=== PATIENT | male | born 1950 | race Caucasian/White ===

== ENCOUNTER 2018-05-20 23:55 | Inpatient (IN) | payer OTHER ==
[~2018-05-20] VITALS: Ht 167.6 cm; Wt 90.7 kg
--- NOTE | ~2018-05-20 | EKG ---
[place], [place] ELECTROCARDIOGRAM REPORT NAME: FABIAN ARELLANO UNIT #: [id number] ROOM: 405 DOCTOR: THOR DRAFT REPORT BIRTHDATE: [birth year] [facility] Test Date: 2018-05-21 Test Time: 00:01:45 Pat Name: FABIAN ARELLANO Department: ER Room: 405 Gender: M Chemistry Tutor: Emir Pérez : 1950 Requested By: BRITTANY CARLSON Order Number: [id number] Reading MD: Jerry Mcelroy MD Measurements Intervals [place] Rate: 118 P: 51 DE: 141 QRS: 21 QRSD: 105 T: 54 QT: 337 QTc: 473 Interpretive Statements Sinus tachycardia Low voltage, extremity leads Baseline wander in lead(s) V1 Electronically Signed On 05-21-2018 17:39:41 PDT by Jerry Mcelroy MD CM:EKGRPT:ELECTROCARDIOGRAM REPORT [id number] BRITTANY CARLSON MD EPIPHANY DRAFT REPORT BRITTANY CARLSON MD
--- NOTE | ~2018-05-20 | EKG ---
[place], [place] ELECTROCARDIOGRAM REPORT NAME: FABIAN ARELLANO UNIT #: [id number] ROOM: 405 DOCTOR: THOR DRAFT REPORT BIRTHDATE: [birth year] [facility] Test Date: 2018-05-21 Test Time: 02:09:14 Pat Name: FABIAN ARELLANO Department: ER Room: 405 Gender: M Director Sterile Processing: Emir Pérez : 1950 Requested By: BRITTANY CARLSON Order Number: [id number] Reading MD: Jerry Mcelroy MD Measurements Intervals [place] Rate: 102 P: 37 [place]: 138 QRS: -21 QRSD: 100 T: 42 QT: 355 QTc: 463 Interpretive Statements Sinus tachycardia Borderline left axis deviation Low voltage, extremity leads RSR' in V1 or V2, probably normal variant Electronically Signed On 05-21-2018 17:41:04 PDT by Jerry Mcelroy MD CM:EKGRPT:ELECTROCARDIOGRAM REPORT [id number] BRITTANY CORTEZANY DRAFT REPORT BRITTANY CARLSON MD
--- NOTE | ~2018-05-20 | CON ---
[place], [place] REPORT OF CONSULTATION [id number] UNIT #: [id number] ROOM: 405 DOCTOR: MELINDA GRANT MDYONAS BIRTHDATE: [birth year] DOS: 05/21/2018 PULMONARY CONSULTATION, EVALUATION AND MANAGEMENT CONSULTATION REQUESTED BY: Hospitalist Services. REASON FOR CONSULTATION: Because of increased symptoms of shortness of breath and others. HISTORY OF PRESENT ILLNESS. This is a 67-year-old white male patient with past history of chronic stroke with right hemiparesis/hemiplegia. The patient has been admitted to hospital as he developed increased respiratory symptoms for a couple of days. He has been admitted to the hospital this morning for further care. He has been noted with excessive severe wheezing with shortness of breath, which was noted this morning, was assessed appear to be in distress. Does have some audible wheezing as well. Denies symptoms of fever or chills with that. Denies symptoms of hemoptysis. Denies any acute chest pain at the present time except the pain with coughing sensation in the retrosternal area. He has one brother who has also present in the room with the patient. PAST MEDICAL HISTORY: 1. The patient was noted with chronic stroke for this patient with left cerebrovascular accident and right hemiparesis/hemiplegia. 2. The patient with a previous history of tobacco use as well. 3. Chronic obstructive pulmonary disease. 4. Moderate obesity. 5. Benign prostatic hypertrophy. 6. Neurotic depression. 7. Essential hypertension. 8. Hyperlipidemia. 9. Peripheral neuropathy. 10. Gastroesophageal reflux disease. SOCIAL HISTORY: The patient is currently . He has four children. Denies history of alcohol use or illicit drug use. Tobacco use was noted since teenager and smoked 1 pack of cigarettes per day, which was discontinued in 2008 when he developed acute stroke. FAMILY HISTORY: The patient's father with complication of CVA. Mother with complication of myocardial infarction. MEDICATIONS: From home were listed as prescription of Zithromax, Lipitor, Pulmicort Respules, Celexa, diclofenac, Trelegy Ellipta, gabapentin, lisinopril, metoprolol succinate, Protonix, prednisone 50 mg, Flomax and theophylline. The medications, which were administered today as Solu-Medrol 60 mg b.i.d. IV famotidine, Mucinex, albuterol sulfate, diclofenac and Levaquin as well as hydromorphone p.r.n. use. DRUG ALLERGIES: The patient noted allergies to: [place], [place] REPORT OF CONSULTATION NAME: FABIAN ARELLANO UNIT #: [id number] ROOM: 405 DOCTOR: MELINDA GRANT MD,[facility] BIRTHDATE: [birth year] 1. IBUPROFEN. 2. PENICILLINS. PHYSICAL EXAMINATION: GENERAL: A 67-year-old male noted with audible wheezing with some respiratory distress and tachypnea this morning of assessment. Height was recorded 5 feet 6 inches, weight of 200 pounds and BMI 32. VITAL SIGNS: With a normal temperature, respiratory rate 17-22, heart rate of 126-93, sinus tachycardia, blood pressure 157/85-153/92. The pulse oxygen saturation on 3 liters nasal cannula 96% saturation. HEENT: Chronic obesity. Head was atraumatic. Severe decreased posterior pharyngeal space, high tongue base and crowding of soft tissue structures. NECK: Supple. CARDIOVASCULAR: S1, S2 is audible. LUNGS: Noted with diffuse expiratory wheezing. There were no crackles. ABDOMEN: Soft, nontender. Bowel sounds present and obese. EXTREMITIES: Without any edema, clubbing or cyanosis. MUSCULOSKELETAL: Noted without any deformities. CENTRAL NERVOUS SYSTEM: Right hemiparesis/hemiplegia was noted. LABORATORY DATA: Reviewed for today's admission. The CBC of this morning in the Emergency Room, WBC count 11.4, hemoglobin 11.3, platelet count normal. PT/PTT with INR 3.8, which is mildly about therapeutic range with normal PTT. CMP noted normal BUN and creatinine. Lactic acid was 2.7. The lipase 116. The arterial blood gas that I ordered obtained, pH of 7.40, pCO2 34, pO2 of 55.7. The patient has a CT scan of the chest and abdomen was also performed was reviewed shows evidence of severe bullous emphysematous changes, calcification of the left apex as well. Paraseptal emphysema with centrilobular emphysema was also seen. Calcification of the left pleural fluid was also noted. No acute pulmonary infiltration was visible. T8 compression fracture was also reported by the radiologist interpretation, but there is acute ____ to be determined. IMPRESSION: 1. Currently noted with significant respiratory distress was noted with acute hypoxemic respiratory failure with acute exacerbation of chronic obstructive pulmonary disease, acute tracheobronchitis. 2. Moderate obesity as well. 3. Past history of cerebrovascular accident with right hemiparesis/hemiplegia. 4. Calcification of the pleura at this time. History not clearly remembered. 5. Abnormal PT and PTT with PT/INR was also noted, but the medication list does not continue the use of the Coumadin. PLAN OF TREATMENT: The patient has been started on the BiPAP setting of 01/21 with oxygen supplementation with the pulse ox 92% or greater. The PT, PTT, and PT/INR at the present time to reassess and inquire about use of the Coumadin or similar medication in the home settings as well. Sputum for Gram stain and culture will be ordered. Other therapy, plan and management, additional treatment changes will be ordered based on the progression of the illness. Continue bronchodilator use of corticosteroids in case of worsening of the respiratory status, consider transfer to the Intensive Care Unit for further [place], [place] REPORT OF CONSULTATION NAME: ADANFABIAN Winsome UNIT #: [id number] ROOM: 405 DOCTOR: YONAS CABRERA MD BIRTHDATE: [birth year] medical management. Potential intubation might occur if the patient's respiratory failure worsens. All other therapy, plan of management, care, plan of treatments. Usual care. Supportive plan of management and treatment plan as in progress as well. Thanks for allowing me to participate in the care of this patient. YONAS LAWRENCE MD CM:CONSTR:REPORT OF CONSULTATION 1305 05/22/18 0353 interface
--- NOTE | ~2018-05-20 | PR ---
[place], [place] PROGRESS NOTE NAME: [facility] [id number] UNIT #: [id number] ROOM: 405 DOCTOR: MELINDA GRANT MD,YONAS BIRTHDATE: [birth year] DOS: 05/24/2018 SUBJECTIVE: The patient has been noted quite comfortable with marked improvement. The patient noted reduction in respiratory symptom, coughing, wheezing, shortness of breath. There were no symptoms of chest pain reported by the patient. OBJECTIVE: VITAL SIGNS: Normal temperature, respiratory rate 20, heart rate of 87, blood pressure 127/63. The pulse ox saturation on 3 liters nasal cannula 99% saturation. HEENT: Head was atraumatic. Eyes nonicterus. NECK: Chronic obesity. Supple. CARDIOVASCULAR: S1, S2 is audible. LUNGS: The patient was noted without any wheezing or crackles at the present time. ABDOMEN: Soft and obese, nontender. EXTREMITIES: No new changes. IMPRESSION: The patient with: 1. Progressive resolution and improvement in acute exacerbation of chronic obstructive pulmonary disease were noted gradually and progressively current medical management. 2. Acute chronic obesity. 3. Suspected obstructive sleep apnea disorder. PLAN OF THERAPY: No changes in the plan of care at this time. Continue the patient's current therapy, plan of management, care plan of treatment. YONAS LAWRENCE MD CM:PNTRANS [id number] YONAS GRANT MD 05/25/18 0216 interface
--- NOTE | ~2018-05-20 | PR ---
[place], [place] PROGRESS NOTE NAME: FAIBAN ARELLANO UNIT #: [id number] ROOM: 405 DOCTOR: YONAS CABRERA MD BIRTHDATE: [birth year] DOS: 05/23/2018 PULMONARY PROGRESS NOTE SUBJECTIVE: He appeared to be quite comfortable at this time. This morning ____ noted audible wheezing. Reporting cough at time. No sputum expectoration. Shortness of breath, resolving. Noted fully awake, alert, and oriented this morning of assessment. OBJECTIVE: VITAL SIGNS: Normal temperature, respiratory rate 18, heart rate 80, blood pressure 136/70-113/48. The pulse oxygen 97% saturation. HEENT: Examination shows head was atraumatic. Eyes nonicterus. NECK: Supple. CARDIOVASCULAR: S1, S2 is audible. LUNGS: The patient without any crackles. Mild expiratory wheezing. ABDOMEN: Soft, nontender. Bowel sounds present. EXTREMITIES: No new changes. LABORATORY DATA: INR this morning noted 2.2, which is in therapeutic range. Blood cultures, no bacterial growths. IMPRESSION: 1. Resolving acute exacerbation of chronic obstructive pulmonary disease. The patient with acute bronchitis in the last 24 hours. 2. The patient with history of old cerebrovascular accident with hemiparesis on the right side. 3. Improving acute exacerbation of chronic obstructive pulmonary disease as well. 4. Suspicion of obstructive sleep apnea disorder. PLAN OF MANAGEMENT: Continuation of current plan of management except reduction of Solu-Medrol from 60 mg to 40 mg b.i.d. Monitor respiratory status, continue BiPAP, oxygen, and other therapies. [place], [place] PROGRESS NOTE NAME: FABIAN ARELLANO UNIT #: [id number] ROOM: 405 DOCTOR: YONAS CABRERA MD BIRTHDATE: [birth year] YONAS LAWRENCE MD CM:PNTRANS [id number] YONAS GRANT MD 05/24/18 0118 interface
--- NOTE | ~2018-05-20 | EKG ---
[place], [place] ELECTROCARDIOGRAM REPORT NAME: FABIAN ARELLANO UNIT #: [id number] ROOM: 405 DOCTOR: THOR DRAFT REPORT BIRTHDATE: [birth year] [facility] Test Date: 2018-05-21 Test Time: 05:55:39 Pat Name: FABIAN ARELLANO Department: Room: 405 Gender: M Air Saw Operator: Selwyn Smith : 1950 Requested By: BRITTANY CARLSON Order Number: [id number] Reading MD: Ninoska George Measurements Intervals [place] Rate: 117 P: 48 [place]: 137 QRS: 13 QRSD: 103 T: 58 QT: 340 QTc: 475 Interpretive Statements Sinus tachycardia Low voltage, extremity leads Baseline wander in lead(s) II,III,aVF,V2,V4 Compared to ECG 05/21/2018 02:09:14 No significant changes Electronically Signed On 05-24-2018 4:47:40 PDT by Ninoska George CM:EKGRPT:ELECTROCARDIOGRAM REPORT [id number] BRITTANY MCRAE DRAFT REPORT BRITTANY CARLSON MD
--- NOTE | ~2018-05-20 | EKG ---
[place], [place] ELECTROCARDIOGRAM REPORT NAME: FABIAN ARELLANO UNIT #: [id number] ROOM: 405 DOCTOR: THOR DRAFT REPORT BIRTHDATE: [birth year] [facility] Test Date: 2018-05-21 Test Time: 16:34:11 Pat Name: FABIAN ARELLANO Department: Room: 405 1 Gender: M Developmental Specialist: Christel Coates : 1950 Requested By: CHARLES VALLADARES Order Number: [id number] Reading MD: Jerry Mcelroy MD Measurements Intervals [place] Rate: 161 P: 60 MT: 187 QRS: 0 QRSD: 113 T: 77 QT: 339 QTc: 555 Interpretive Statements Supraventricular tachycardia Borderline intraventricular conduction delay Low voltage, extremity leads Abnormal R-wave progression, late transition Electronically Signed On 05-21-2018 17:42:10 PDT by Jerry Mcelroy MD CM:EKGRPT:ELECTROCARDIOGRAM REPORT [id number] CHARLES BERGMAN DRAFT REPORT CHARLES VALLADARES DO
--- NOTE | ~2018-05-20 | PR ---
[place], [place] PROGRESS NOTE NAME: FABIAN ARELLANO [facility] #: [id number] UNIT #: [id number] ROOM: 405 DOCTOR: MELINDA GRANT MD,YONAS BIRTHDATE: [birth year] DOS: 05/22/2018 PULMONARY PROGRESS NOTE SUBJECTIVE: The patient has been noted comfortable, responding to treatment with the use of the BiPAP. The patient has used the BiPAP with reduction of respiratory distress noted this morning. He has been currently comfortably resting on his bed. Denies symptoms of chest pain, fever or chills. He was planned for endoscopy to be done today by Dr. Hernandez. The patient has not reported any symptoms of nausea, vomiting. Cough has been noted without any sputum expectoration. There were no symptoms of fever or chills. The remaining systems were reviewed. They were noted all negative. OBJECTIVE: VITAL SIGNS: Normal temperature, respiratory rate 20, heart rate of 140, yesterday to 122, later on 89. The pulse oxygen saturation recorded as 97% saturation on 3 liters nasal cannula. HEENT: Chronic obesity. Head was atraumatic. NECK: Supple. CARDIOVASCULAR SYSTEM: S1, S2 is audible. LUNGS: Noted moderate decreased breath sounds and expiratory wheezing decreased from previous examination. ABDOMEN: Soft, nontender. EXTREMITIES: No edema. MUSCULOSKELETAL: Without any acute deformities. CENTRAL NERVOUS SYSTEM: Persistent chronic right hemiplegia/hemiparesis. LABORATORY DATA: CMP this morning; glucose 153, BUN and creatinine were normal, other electrolytes normal. PT/INR were noted 3.2 in the therapeutic range. CBC; WBC 11.0, hemoglobin 10.2, hematocrit 32.7, and platelet count of 277,000. IMPRESSION: The patient who has been currently noted with: 1. Acute exacerbation of chronic obstructive pulmonary disease, respiratory distress as well decreased. 2. History of chronic cerebrovascular accident with hemiplegia. Other symptoms with the pain and also the patient has been assessed by Dr. Hernandez. 3. Chronic obesity. 4. Suspicion of obstructive sleep apnea disorder. PLAN OF TREATMENT: Continue to use the BiPAP, oxygen supplementation, other therapies as in progress. Other additional treatment changes will be ordered based on the progression of illness. No changes in steroids. Use the BiPAP intermittently during the day, continue at nighttime. Proceed with the current surgical procedure for assessment of the GI tract by Dr. Hernandez. The case was discussed with him personally. The patient was noted on therapeutic INR, most likely receiving the anticoagulation. Family members were not sure about that and not listed in the patient's current history. The patient does not have any other abnormality, which has been explaining. The only other way to explain that would be some kind of coagulation abnormality with a deficiency of the [place], [place] PROGRESS NOTE NAME: FABIAN ARELLANO UNIT #: [id number] ROOM: [facility] DOCTOR: YONAS CABRERA MD BIRTHDATE: [birth year] clotting factors. However, this is to be clarified for the patient's pharmacy about his medication prescriptions to accurately charge the patient's abnormal INR. YONAS LAWRENCE MD CM:PNTRANS [id number] YONAS GRANT MD 05/23/18 0028 interface
[2018-05-20 23:55] VITALS: BP 149/75
[2018-05-21] VITALS (11 sets, daily range): BP systolic 132–166; BP diastolic 80–94
[2018-05-21 00:38] LABS: BASO # 0.1 10*3/uL (0.0-0.1); BASO % 1.1 % (0.0-1.0); EOS # 0.3 10*3/uL (0.0-0.4); HEMATOCRIT 35.8 % (42.0-52.0); HEMOGLOBIN 11.3 g/dl (14.0-18.0); LYMPH % 17.3 % (27.0-41.0); MEAN CELL VOLUME 81.9 fl (80.0-94.0); MEAN CORPUSCULAR HGB 25.9 pg (27.0-31.0); MEAN CORPUSCULAR HGB CONC 31.6 g/dl (33.0-37.0); MEAN PLATELET VOLUME 11.4 fl (9.6-12.3); MONO # 1.4 10*3/uL (0.1-1.0); MONO % 12.3 % (3.0-9.0); NEUT # 7.2 10*3/uL (2.3-7.9); NEUT % 63.7 % (47.0-73.0); PLATELET COUNT AUTOMATED 280 10*3/uL (130-400); RED BLOOD COUNT 4.37 10*6/uL (4.50-5.90); RED CELL DISTRI WIDTH 16.8 % (0-14.5); WHITE BLOOD COUNT 11.4 10*3/uL (4.8-10.8)
[2018-05-21 00:50] LABS: ACT PARTIAL THROMBO TIME 30.3 SECONDS (20.8-31.5); INTERNATIONAL NORM RATIO 3.8 (2.0-3.5)
[2018-05-21 00:59] LABS: ALBUMIN 3.4 gm/dl (3.1-4.5); ALKALINE PHOSPHATASE 93 U/L (45-117); BUN 12 mg/dl (7-24); CHLORIDE 108 mmol/L (98-107); CREATININE 1.02 mg/dL (0.70-1.30); POTASSIUM 4.2 mmol/L (3.5-5.1); SGOT/AST 31 IU/L (3-35); SGPT/ALT 36 U/L (12-78); SODIUM 142 mmol/L (136-145)
[2018-05-21 01:04] LABS: TROPONIN I < 0.015 ng/ml (<0.045)
[2018-05-21] MEDS ORDERED: LIPITOR10 MG PO (05:58)
[2018-05-21] MEDS ORDERED: ZITHROMAX250 MG PO (05:59)
[2018-05-21] MEDS ORDERED: CELEXA20 MG PO (06:00)
[2018-05-21] MEDS ORDERED: NEURONTIN300 MG PO (06:00)
[2018-05-21] MEDS ORDERED: ZESTRIL10 MG PO (06:01)
[2018-05-21] MEDS ORDERED: METOPROLOL SUCC25 M2 PO (06:02)
[2018-05-21] MEDS ORDERED: PANTOPRAZOLE SO40 MG PO (06:03)
[2018-05-21] MEDS ORDERED: PREDNISONE10 M1 PO (06:03)
[2018-05-21] MEDS ORDERED: SENNA LAX8.6 M1 PO (06:04)
[2018-05-21] MEDS ORDERED: TAMSULOSIN HCL0.4 MG PO (06:04)
[2018-05-21] MEDS ORDERED: THEO-24 200MG200 MG PO (06:05)
[2018-05-21] MEDS ORDERED: PULMICORT RESP0.5 M1 INH (06:06)
[2018-05-21] MEDS ORDERED: TRELEGY ELLIPT1 EACH INH (06:07)
[2018-05-21] MEDS ORDERED: DICLOFENAC SOD100 G1 T (06:07)
[2018-05-21 12:48] LABS: ABG BASE EXCESS -2.2 mmol/L (-2.0-2.0); ABG HCO3 21.5 mmol/l (22-26); ABG O2 SATURATION 91.2 % (95-97); ARTERIAL BLOOD GAS PCO2 34.6 mmHg (35-45); ARTERIAL BLOOD GAS PH 7.408 (7.35-7.45); ARTERIAL BLOOD GAS PO2 55.7 mmHg (80-90)
[2018-05-21 17:51] LABS: ABG BASE EXCESS -5.1 mmol/L (-2.0-2.0); ABG HCO3 19.4 mmol/l (22-26); ABG O2 SATURATION 86.9 % (95-97); ARTERIAL BLOOD GAS PCO2 35.1 mmHg (35-45); ARTERIAL BLOOD GAS PH 7.358 (7.35-7.45); ARTERIAL BLOOD GAS PO2 55.2 mmHg (80-90)
[2018-05-22] VITALS (7 sets, daily range): BP systolic 129–159; BP diastolic 62–94
[2018-05-22 06:48] LABS: BASO % 0.3 % (0.0-1.0); HEMATOCRIT 32.7 % (42.0-52.0); HEMOGLOBIN 10.2 g/dl (14.0-18.0); LYMPH # 0.6 10*3/uL (1.3-4.4); LYMPH % 5.1 % (27.0-41.0); MEAN CELL VOLUME 82.4 fl (80.0-94.0); MEAN CORPUSCULAR HGB 25.7 pg (27.0-31.0); MEAN CORPUSCULAR HGB CONC 31.2 g/dl (33.0-37.0); MONO # 0.6 10*3/uL (0.1-1.0); MONO % 5.5 % (3.0-9.0); NEUT # 9.7 10*3/uL (2.3-7.9); PLATELET COUNT AUTOMATED 277 10*3/uL (130-400); RED BLOOD COUNT 3.97 10*6/uL (4.50-5.90); RED CELL DISTRI WIDTH 17.5 % (0-14.5)
[2018-05-22 06:55] LABS: INTERNATIONAL NORM RATIO 3.2 (2.0-3.5)
[2018-05-22 07:22] LABS: ALBUMIN 3.3 gm/dl (3.1-4.5); BUN 16 mg/dl (7-24); CHLORIDE 111 mmol/L (98-107); CREATININE 1.01 mg/dL (0.70-1.30); POTASSIUM 4.4 mmol/L (3.5-5.1); SODIUM 143 mmol/L (136-145)
[2018-05-22 07:31] LABS: ALKALINE PHOSPHATASE 83 U/L (45-117); CHOLESTEROL 162 mg/dL (<200); HDL CHOLESTEROL 86 mg/dl (40-60); LDL CHOLESTEROL 65 mg/dL (9-159); PHOSPHOROUS 3.2 mg/dL (2.5-4.9); SGOT/AST 35 IU/L (3-35); SGPT/ALT 44 U/L (12-78); THYROID STIM HORMONE (HS) 0.498 uIU/ml (0.358-4.75); TOTAL PROTEIN 6.8 gm/dL (6.4-8.2); TRIGLYCERIDES 56 mg/dl (<150); VLDL CHOLESTEROL 11 mg/dL (6-40)
[2018-05-23] VITALS: BP 113/48
[2018-05-23 08:00] VITALS: BP 136/70
[2018-05-23 10:50] LABS: INTERNATIONAL NORM RATIO 2.3 (2.0-3.5)
[2018-05-23 12:00] VITALS: BP 138/61
[2018-05-23 16:00] VITALS: BP 111/64
[2018-05-23 20:00] VITALS: BP 126/69
[2018-05-24] VITALS: BP 127/63
[2018-05-24 06:29] LABS: INTERNATIONAL NORM RATIO 1.7 (2.0-3.5)
[2018-05-24] MEDS ORDERED: LEVOFLOXACIN500 MG PO (09:45)
[2018-05-24] MEDS ORDERED: PREDNISONE10 MG PO (09:47)
[2018-05-24] MEDS ORDERED: MUCINEX ER600 MG PO (09:47)
[2018-05-24] MEDS ORDERED: COUMADIN5 M2 PO (09:49)
[2018-05-24] MEDS ORDERED: ZANTAC 150150 MG PO (09:49)
== END 2018-05-24 15:26 | disposition home or self-care (01) | DRG 871 ==
LOC: ED 23:55 → 4E 05-21 04:38 → EDHOLD 05-21 04:38 → 4E 05-21 05:11
PROVIDERS: Emergency Medicine; Emergency Medicine Emergency Medical Services; Internal Medicine Critical Care Medicine; Registered Nurse; Student in an Organized Health Care Education/Training Program; ADMIT Internal Medicine
PROC: 0DJ08ZZ Inspection of Upper Intestinal Tract, Via Natural or Artificial Opening Endoscopic (ICD-10-PCS; principal; 2018-05-22)
PROC: 5A09357 Assistance with Respiratory Ventilation, Less than 24 Consecutive Hours, Continuous Positive Airway Pressure (ICD-10-PCS; 2018-05-23)
PROC: 5A09357 Assistance with Respiratory Ventilation, Less than 24 Consecutive Hours, Continuous Positive Airway Pressure (ICD-10-PCS; 2018-05-24)
DX: A41.9 Sepsis, unspecified organism (principal); J18.9 Pneumonia, unspecified organism; J96.21 Acute and chronic respiratory failure with hypoxia; D68.59 Other primary thrombophilia; E87.2 Acidosis; S22.060A Wedge compression fracture of T7-T8 vertebra, initial encounter for closed fracture; I69.351 Hemiplegia and hemiparesis following cerebral infarction affecting right dominant side; R65.20 Severe sepsis without septic shock; J43.9 Emphysema, unspecified; D64.9 Anemia, unspecified; E87.8 Other disorders of electrolyte and fluid balance, not elsewhere classified; K52.9 Noninfective gastroenteritis and colitis, unspecified; X58.XXXA Exposure to other specified factors, initial encounter; I10 Essential (primary) hypertension; N40.1 Benign prostatic hyperplasia with lower urinary tract symptoms; R33.8 Other retention of urine; E78.5 Hyperlipidemia, unspecified; K21.9 Gastro-esophageal reflux disease without esophagitis; G62.9 Polyneuropathy, unspecified; G47.33 Obstructive sleep apnea (adult) (pediatric); E11.42 Type 2 diabetes mellitus with diabetic polyneuropathy; F32.9 Major depressive disorder, single episode, unspecified; E66.09 Other obesity due to excess calories; K29.70 Gastritis, unspecified, without bleeding; K20.9 Esophagitis, unspecified; F41.9 Anxiety disorder, unspecified; Y93.89 Activity, other specified; Y92.89 Other specified places as the place of occurrence of the external cause; Y99.8 Other external cause status; Z88.0 Allergy status to penicillin; Z87.891 Personal history of nicotine dependence; Z79.4 Long term (current) use of insulin; Z98.84 Bariatric surgery status; Z82.3 Family history of stroke; Z82.49 Family history of ischemic heart disease and other diseases of the circulatory system; Z68.32 Body mass index [BMI] 32.0-32.9, adult

== ENCOUNTER 2018-09-27 11:42 | Emergency (ER) | payer OTHER ==
[~2018-09-27] VITALS: Ht 167.6 cm; Wt 72.6 kg
[~2018-09-27 11:42] MED LIST: CELEXA20 MG PO; COUMADIN5 M2 PO; DICLOFENAC SOD100 G1 T; LEVOFLOXACIN500 MG PO; LIPITOR10 MG PO; METOPROLOL SUCC25 M2 PO; MUCINEX ER600 MG PO; NEURONTIN300 MG PO; PANTOPRAZOLE SO40 MG PO; PREDNISONE10 M1 PO; PREDNISONE10 MG PO; PULMICORT RESP0.5 M1 INH; SENNA LAX8.6 M1 PO; TAMSULOSIN HCL0.4 MG PO; THEO-24 200MG200 MG PO; TRELEGY ELLIPT1 EACH INH; ZANTAC 150150 MG PO; ZESTRIL10 MG PO; ZITHROMAX250 MG PO
[2018-09-27 12:30] LABS: BILIRUBIN NEGATIVE (NEGATIVE); BLOOD NEGATIVE (NEGATIVE); CLARITY CLOUDY (CLEAR); COLOR YELLOW (YELLOW); GLUCOSE NEGATIVE (NEGATIVE); KETONE NEGATIVE (NEGATIVE); LEUKO ESTERASE 1+ (NEGATIVE); NITRITE NEGATIVE (NEGATIVE); SPECIFIC GRAVITY 1.015 (1.005-1.030); UROBILINOGEN 0.2 E.U./dl (0.2-1.0)
[2018-09-27 12:52] LABS: BACTERIA 4+; RBC 0-2 rbc/hpf (0-2)
[2018-09-27] MEDS ORDERED: CIPRO500 MG PO (13:47)
== END 2018-09-27 13:50 | disposition home or self-care (01) ==
LOC: ED 11:42
PROVIDERS: Hospitalist
DX: N39.0 Urinary tract infection, site not specified (principal); T83.038A Leakage of other urinary catheter, initial encounter; J44.9 Chronic obstructive pulmonary disease, unspecified; K21.9 Gastro-esophageal reflux disease without esophagitis; I10 Essential (primary) hypertension; E66.9 Obesity, unspecified; G62.9 Polyneuropathy, unspecified; Z88.0 Allergy status to penicillin; Z88.6 Allergy status to analgesic agent; Z79.899 Other long term (current) drug therapy; Z86.73 Personal history of transient ischemic attack (TIA), and cerebral infarction without residual deficits; Z87.891 Personal history of nicotine dependence; Y84.6 Urinary catheterization as the cause of abnormal reaction of the patient, or of later complication, without mention of misadventure at the time of the procedure; Y92.89 Other specified places as the place of occurrence of the external cause

== ENCOUNTER 2018-09-28 20:17 | Emergency (ER) | payer MEDICARE, OTHER ==
[~2018-09-28] VITALS: Wt 72.6 kg
[~2018-09-28 20:17] MED LIST changes: +CIPRO500 MG PO
== END 2018-09-28 23:12 | disposition home or self-care (01) ==
LOC: ED 20:17
DX: R33.9 Retention of urine, unspecified (principal); E66.9 Obesity, unspecified; E78.5 Hyperlipidemia, unspecified; K21.9 Gastro-esophageal reflux disease without esophagitis; I10 Essential (primary) hypertension; J44.9 Chronic obstructive pulmonary disease, unspecified; Z79.899 Other long term (current) drug therapy; Z87.891 Personal history of nicotine dependence; Z98.84 Bariatric surgery status; Z86.73 Personal history of transient ischemic attack (TIA), and cerebral infarction without residual deficits; Z79.01 Long term (current) use of anticoagulants; Z88.0 Allergy status to penicillin; Z88.6 Allergy status to analgesic agent

== ENCOUNTER 2018-09-29 22:00 | Emergency (ER) | payer MEDICARE, OTHER ==
[~2018-09-29] VITALS: Ht 167.6 cm; Wt 75.7 kg
== END 2018-09-30 00:20 | disposition home or self-care (01) ==
LOC: ED 22:00
DX: R33.9 Retention of urine, unspecified (principal); T83.038A Leakage of other urinary catheter, initial encounter; G89.29 Other chronic pain; J44.9 Chronic obstructive pulmonary disease, unspecified; K21.9 Gastro-esophageal reflux disease without esophagitis; I10 Essential (primary) hypertension; E78.5 Hyperlipidemia, unspecified; G62.9 Polyneuropathy, unspecified; E66.9 Obesity, unspecified; Z87.891 Personal history of nicotine dependence; Z88.8 Allergy status to other drugs, medicaments and biological substances; Z88.0 Allergy status to penicillin; Z79.899 Other long term (current) drug therapy; Z79.2 Long term (current) use of antibiotics; Z86.73 Personal history of transient ischemic attack (TIA), and cerebral infarction without residual deficits